=== PATIENT | male | born 1995 | race Two or more races ===

== ENCOUNTER 2023-03-05 11:22 | Emergency (ER) | payer OTHER ==
[~2023-03-05] VITALS: Ht 182.9 cm; Wt 195.4 kg
[2023-03-05 12:39] VITALS: TEMP 98.4
[2023-03-05] MEDS ORDERED: PERTUSS(ACELL),DIPH,TET VAC/PF 0.5 ML SYRINGE IM. ONE (14:30)
[2023-03-05] MEDS ORDERED: LIDOCAINE 1%/EPI 1:200,000/PF 30 ML VIAL SQ ONE (14:30)
[2023-03-05] MEDS ORDERED: BACITRACIN 28 GM OINTMENT TP ONE (16:00)
[2023-03-05 17:57] VITALS: BP 120/78; PULSE 78; RESP 18
== END 2023-03-05 18:05 ==
LOC: EMS 11:22
DX: S01.01XA Laceration without foreign body of scalp, initial encounter (principal); S93.401A Sprain of unspecified ligament of right ankle, initial encounter; S63.501A Unspecified sprain of right wrist, initial encounter; F17.210 Nicotine dependence, cigarettes, uncomplicated; W19.XXXA Unspecified fall, initial encounter; Y93.89 Activity, other specified; Y92.89 Other specified places as the place of occurrence of the external cause; Y99.8 Other external cause status
CPT/HCPCS: 99285; 70450; 73110; 73610; 72125; 90715; 90471; 12002; J3490

== ENCOUNTER 2024-09-23 13:57 | Emergency (ER) | payer OTHER ==
[~2024-09-23] VITALS: Ht 175.3 cm; Wt 184.1 kg
[2024-09-23 15:07] VITALS: BP 116/69; PULSE 74; RESP 18; TEMP 98.4; O2SAT 96
[2024-09-23 16:29] LABS: PLATELET COUNT (AUTO) 270 K/uL (150-450); RED BLOOD CELL COUNT(AUTO) 5.52 MIL/uL (4.50-5.90); RED CELL DISTRIBUTION WIDTH 14.2 % (11.5-14.5); WHITE BLOOD COUNT (AUTO) 8.8 K/uL (4.5-11.0)
[2024-09-23 16:39] LABS: CALCIUM, TOTAL 9.4 mg/dL (8.8-10.5); CREATININE 0.92 mg/dL (0.60-1.30); GLOMERULAR FILTR. RATE CALC > 60 mL/min (>60); GLUCOSE,RANDOM 102 mg/dL (70-110); SODIUM SERUM 137 mmol/L (136-145); UREA NITROGEN, BLOOD 12 mg/dL (7-18)
[2024-09-23 16:49] LABS: TROPONIN I-HIGH SENSITIVITY 8 ng/L (<76)
[2024-09-23] MEDS: APIXABAN 5 MG TABLET PO ONE (17:22)
== END 2024-09-23 17:55 ==
LOC: EMS 13:57
DX: I82.811 Embolism and thrombosis of superficial veins of right lower extremity (principal); E11.9 Type 2 diabetes mellitus without complications; I10 Essential (primary) hypertension; F17.210 Nicotine dependence, cigarettes, uncomplicated; Z79.84 Long term (current) use of oral hypoglycemic drugs
CPT/HCPCS: 80048; 84484; 85025; 85379; 93970; 99284